=== PATIENT | male | born 1975 | race African-American/Black ===

== ENCOUNTER 2019-09-06 23:46 | Emergency (ER) | payer OTHER ==
[~2019-09-06] VITALS: Ht 193 cm; Wt 102.1 kg
[2019-09-06] MEDS ORDERED: COZAAR25 MG (23:55)
[2019-09-07] MEDS ORDERED: KETO10TA2 PO (02:02)
[2019-09-07] MEDS ORDERED: ORPHENADRINE C100 MG PO (02:02)
== END 2019-09-07 02:22 | disposition home or self-care (01) ==
LOC: ER 23:46
DX: M54.2 Cervicalgia (principal)

== ENCOUNTER 2019-10-03 21:09 | Emergency (ER) | payer OTHER ==
[~2019-10-03] VITALS: Ht 193 cm; Wt 102.1 kg
[~2019-10-03 21:09] MED LIST: COZAAR25 MG; KETO10TA2 PO; ORPHENADRINE C100 MG PO
== END 2019-10-04 00:16 | disposition home or self-care (01) ==
LOC: ER 21:09
DX: M54.5 Low back pain (principal)

== ENCOUNTER → 2019-12-26 | Emergency (ER) | payer OTHER ==
[~2019-12-26] VITALS: Ht 193 cm; Wt 99.8 kg
[~2019-12-26] MED LIST changes: +LOSARTAN POTASS25 MG PO
== END | disposition home or self-care (01) ==
LOC: ER 23:13
DX: B34.9 Viral infection, unspecified (principal)

== ENCOUNTER 2021-08-08 22:03 | Emergency (ER) | payer OTHER ==
[~2021-08-08] VITALS: Ht 193 cm; Wt 95.3 kg
== END 2021-08-08 23:23 | disposition home or self-care (01) ==
LOC: ER 22:03
DX: M94.0 Chondrocostal junction syndrome [Tietze] (principal); R07.89 Other chest pain

== ENCOUNTER 2021-08-12 17:30 | Emergency (ER) | payer OTHER ==
[~2021-08-12] VITALS: Ht 193 cm; Wt 101.2 kg
[2021-08-12] MEDS ORDERED: COZAAR50 MG PO (18:17)
== END 2021-08-12 19:58 | disposition home or self-care (01) ==
LOC: ER 17:30
DX: B30.8 Other viral conjunctivitis (principal)

== ENCOUNTER 2021-09-04 02:33 | Emergency (ER) | payer OTHER ==
[~2021-09-04] VITALS: Ht 193 cm; Wt 101.6 kg
[~2021-09-04 02:33] MED LIST changes: +COZAAR50 MG PO
[2021-09-04] MEDS ORDERED: CEPHALEXIN500 MG PO (04:08)
[2021-09-04] MEDS ORDERED: KETO10TA2 PO (04:08)
[2021-09-04] MEDS ORDERED: MUPIROCIN15 GM TOP (04:08)
== END 2021-09-04 04:14 | disposition home or self-care (01) ==
LOC: ER 02:33
DX: L03.011 Cellulitis of right finger (principal)